=== PATIENT | female | born 1990 | race African-American/Black ===

== ENCOUNTER 2018-10-09 19:03 | Emergency (ER) | payer OTHER ==
[~2018-10-09] VITALS: Ht 157.5 cm; Wt 63.5 kg
--- NOTE | 2018-10-09 19:27 | NUR ---
Patient ambulated with stable gait. Speech clear, speaks in complete sentences. A/Ox4. Patient came for c/o flu-like symptoms: sore throat, fever, fever, and nausea with no vomiting. Patient was seen at an urgent care center yesterday for the same symptoms, was prescribed Tamiflu and an ATB that she does not recall the name of. Respiratory even and unlabored, no acute distress noted no sob. No cardiovascular distress noted, all pulses palpable, skin is warm to the touch. No distress noted. Patient in bed at lowest position, sr upx2, call light within reach, fall precautions implemented per protocol. Relative at bedside accompanying patient.
--- NOTE | 2018-10-09 19:37 | NUR ---
ERMD at bedside for eval
[2018-10-09 20:04] LABS: BASOPHILS % (AUTO) 0.2 % (0.0-2.0); EOSINOPHILS % (AUTO) 0.1 % (0.0-7.0); HEMATOCRIT 36.9 % (31.2-41.9); HEMOGLOBIN 11.8 g/dL (10.9-14.3); LYMPHOCYTES # (AUTO) 1.2 K/uL (20.0-40.0); LYMPHOCYTES % (AUTO) 13.3 % (20.5-51.5); MEAN CORPUSCULAR HEMOGLOBIN 22.2 uug (24.7-32.8); MEAN CORPUSCULAR HGB CONC 32 g/dL (32.3-35.6); MEAN CORPUSCULAR VOLUME 69.7 fL (75.5-95.3); MONOCYTES % (AUTO) 11.5 % (0.0-11.0); NEUTROPHILS # (AUTO) 6.5 K/uL (1.8-8.9); NEUTROPHILS % (AUTO) 74.9 % (38.5-71.5); PLATELET COUNT (AUTO) 272 K/uL (179-408); RED BLOOD CELL COUNT(AUTO) 5.29 MIL/uL (3.63-4.92); WHITE BLOOD COUNT (AUTO) 8.7 K/uL (3.8-11.8)
[2018-10-09 20:07] LABS: *BLOOD, URINE 3+ (NEGATIVE); *COLOR,URINE YELLOW (YELLOW); *KETONES,URINE 4+ (NEGATIVE); *UROBILINOGEN,URINE 0.2 E.U./dl (NORMAL); LEUKOCYTE ESTERASE ,URINE NEGATIVE (NEGATIVE); NITRITE, URINE NEGATIVE (NEGATIVE); UGLUCOSE NEGATIVE (NEGATIVE)
[2018-10-09 20:11] LABS: *BILIRUBIN,URIN 1+ (NEGATIVE)
[2018-10-09] MEDS: IV NORMAL SALINE 1000 ML BAG IV ONE (20:14)
[2018-10-09 20:22] LABS: BACTERIA,URINE MODERATE /HPF (NONE SEEN); SQUAMOUS EPITHELIAL CELL,UR MODERATE /HPF (NONE SEEN)
[2018-10-09 20:23] LABS: *CLARITY,URINE CLOUDY (CLEAR)
[2018-10-09 20:27] LABS: CREATININE 1.1 mg/dL (0.6-1.3); POTASSIUM 3.7 mmol/L (3.5-5.1)
[2018-10-09 20:31] LABS: BILIRUBIN,DIRECT 0.1 mg/dL (0.0-0.2); BILIRUBIN,TOTAL 0.3 mg/dL (0.2-1.0)
[2018-10-09] MEDS ORDERED: IV NORMAL SALINE 250 ML IV ONE (21:02)
[2018-10-09] MEDS ORDERED: SWABABLE VALVE TRANSFER SET EA MC ONE (21:02)
[2018-10-09] MEDS ORDERED: IOHEXOL 350 100 ML INFUS..BTL ONE (21:02)
--- NOTE | 2018-10-09 21:09 | NUR ---
Patient transported to CT in stable condition.
--- NOTE | 2018-10-09 21:32 | NUR ---
Patient back in room from CT.
[2018-10-09] MEDS: METOCLOPRAMIDE HCL 10 MG/2 ML VIAL IV ONE (22:07)
[2018-10-09] MEDS: KETOROLAC TROMETHAMINE 15 MG INJ IVP ONE (22:08)
[2018-10-09] MEDS ORDERED: KETOROLAC TROMETHAMINE 15 MG INJ ONE (22:11)
[2018-10-09] MEDS ORDERED: METOCLOPRAMIDE HCL 10 MG/2 ML VIAL ONE (22:11)
--- NOTE | 2018-10-09 22:33 | NUR ---
Patient discharged to home in stable conditon. Written and verbal after care instructions given. Patient verbalizes understanding of instructions. Patient ambulated with stable gait.
[2018-10-09 22:36] VITALS: BP 112/73
== END 2018-10-09 22:37 | disposition home or self-care (01) ==
LOC: ER 19:05
DX: A93.8 Other specified arthropod-borne viral fevers (principal); Z88.0 Allergy status to penicillin
CPT/HCPCS: 36415; 71045; 71275; 80048; 80076; 81000; 81001; 83605; 84484; 84702; 85025; 85379; 85730; 87040 ×2; 87086; 87400; 93005; 96374; 96375; 99284; J1885; J2765; Q9967; 70030-TC; A4663; J7030; J7050

== ENCOUNTER 2020-04-15 08:45 | Emergency (ER) | payer OTHER ==
[~2020-04-15] VITALS: Ht 157.5 cm; Wt 68.0 kg
[2020-04-15] MEDS ORDERED: KETOROLAC TROMETHAMINE 30 MG INJ IM ONE (09:00)
[2020-04-15] MEDS ORDERED: NAPR-1164 PO (09:08)
[2020-04-15] MEDS ORDERED: KETOROLAC TROMETHAMINE 30 MG INJ ONE (09:08)
[2020-04-15] MEDS ORDERED: CYCL10TA9 PO (09:10)
--- NOTE | 2020-04-15 09:21 | NUR ---
Patient discharged to home in stable condition with steady gait. Written and verbal after care instructions given to patient. Patient verbalize understanding & compliance of instructions. Stressed follow up with your primary doctor or return to ER for worsening s/s.
== END 2020-04-15 09:21 | disposition home or self-care (01) ==
LOC: ER 08:45
DX: M54.5 Low back pain (principal); Z88.0 Allergy status to penicillin
CPT/HCPCS: 96372; 99283; J1885; A4663

== ENCOUNTER 2022-01-12 17:53 | Emergency (ER) | payer OTHER ==
[~2022-01-12] VITALS: Ht 157.5 cm; Wt 68.0 kg
[~2022-01-12 17:53] MED LIST: CYCL10TA9 PO; NAPR-1164 PO
[2022-01-12] MEDS ORDERED: KETOROLAC TROMETHAMINE 30 MG INJ IVP ONE (19:00)
[2022-01-12] MEDS ORDERED: METOCLOPRAMIDE HCL 10 MG/2 ML VIAL IV ONE (19:00)
[2022-01-12] MEDS ORDERED: IV NS 1000 ML 1,000 ML IV ONE (19:00)
[2022-01-12] MEDS ORDERED: diphenhydrAMINE 50 MG/1 ML VIAL IV ONE (19:00)
--- NOTE | 2022-01-12 19:07 | NUR ---
Endorsed to Dick WARREN.
[2022-01-12] MEDS ORDERED: KETOROLAC TROMETHAMINE 30 MG INJ ONE (19:49)
[2022-01-12] MEDS ORDERED: METOCLOPRAMIDE HCL 10 MG/2 ML VIAL ONE (19:49)
[2022-01-12] MEDS ORDERED: diphenhydrAMINE 50 MG/1 ML VIAL ONE (19:49)
[2022-01-12 20:15] LABS: *BILIRUBIN,URIN NEGATIVE (NEGATIVE); *BLOOD, URINE NEGATIVE (NEGATIVE); *CLARITY,URINE CLEAR (CLEAR); *COLOR,URINE YELLOW (YELLOW); *KETONES,URINE NEGATIVE (NEGATIVE); *URINE HCG, QUAL NEG (NEGATIVE); *UROBILINOGEN,URINE 0.2 E.U./dl (NORMAL); LEUKOCYTE ESTERASE ,URINE NEGATIVE (NEGATIVE); NITRITE, URINE NEGATIVE (NEGATIVE); PH,URINE 6.5 (5.0-8.0); UGLUCOSE NEGATIVE (NEGATIVE)
[2022-01-12] MEDS ORDERED: PROC10TA29 PO (21:57)
[2022-01-12] MEDS ORDERED: NAPR-1009 PO (21:57)
[2022-01-12] MEDS ORDERED: SUMA100T16 PO (21:57)
--- NOTE | 2022-01-12 22:02 | NUR ---
IV removed. Catheter intact and site benign. Pressure and 4x4 gauze applied to site. No bleeding noted.
[2022-01-12 22:10] VITALS: BP 122/75
--- NOTE | 2022-01-12 22:10 | NUR ---
Patient discharged to home in stable condition with family taking patient home. Written and verbal after care instructions given. Patient verbalizes understanding of instructions. Stressed follow up or return to ER for worsening s/s.
== END 2022-01-12 22:11 | disposition home or self-care (01) ==
LOC: ER 17:53
DX: G43.909 Migraine, unspecified, not intractable, without status migrainosus (principal); Z88.0 Allergy status to penicillin
CPT/HCPCS: 99284; 96374; 96375; 96361; 81003; 84703; J1200; J1885; J2765; J7040; A4663

== ENCOUNTER → 2022-12-01 | Emergency (ER) | payer OTHER ==
[~2022-12-01] VITALS: Ht 157.5 cm; Wt 68.0 kg
[~2022-12-01] MED LIST changes: +NAPR-1009 PO; +PROC10TA29 PO; +SUMA100T16 PO
[2022-12-01 11:25] VITALS: O2SAT 100
[2022-12-01 11:44] LABS: BASOPHILS # (AUTO) 0.1 K/UL (0.0-0.2); EOSINOPHILS # (AUTO) 0.2 K/uL (0.0-0.7); EOSINOPHILS % (AUTO) 2.6 % (0.0-7.0); HEMATOCRIT 37.2 % (31.2-41.9); HEMOGLOBIN 11.9 g/dL (10.9-14.3); LYMPHOCYTES # (AUTO) 1.5 K/uL (0.8-4.8); LYMPHOCYTES % (AUTO) 21.5 % (20.5-51.5); MEAN CORPUSCULAR HEMOGLOBIN 22.6 uug (24.7-32.8); MEAN CORPUSCULAR HGB CONC 32 g/dL (32.3-35.6); MEAN CORPUSCULAR VOLUME 70.4 fL (75.5-95.3); MONOCYTES # (AUTO) 0.5 K/uL (0.1-1.30); MONOCYTES % (AUTO) 7.4 % (0.0-11.0); NEUTROPHILS # (AUTO) 4.6 K/uL (1.8-8.9); NEUTROPHILS % (AUTO) 67.5 % (38.5-71.5); PLATELET COUNT (AUTO) 400 K/uL (179-408); RED BLOOD CELL COUNT(AUTO) 5.28 MIL/uL (3.63-4.92); RED CELL DISTRIBUTION WIDTH 14.9 % (12.3-17.7); WHITE BLOOD COUNT (AUTO) 6.8 K/uL (3.8-11.8)
[2022-12-01 11:50] LABS: *BILIRUBIN,URIN NEGATIVE (NEGATIVE); *BLOOD, URINE NEGATIVE (NEGATIVE); *CLARITY,URINE CLEAR (CLEAR); *COLOR,URINE YELLOW (YELLOW); *KETONES,URINE NEGATIVE (NEGATIVE); *PROTEIN,URINE NEGATIVE (NEGATIVE); *UROBILINOGEN,URINE 0.2 E.U./dl (NORMAL); LEUKOCYTE ESTERASE ,URINE NEGATIVE (NEGATIVE); NITRITE, URINE NEGATIVE (NEGATIVE); UGLUCOSE NEGATIVE (NEGATIVE)
[2022-12-01 11:54] LABS: *URINE HCG, QUAL POSITIVE (NEGATIVE)
[2022-12-01 12:02] LABS: ALBUMIN 3.4 g/dL (3.4-5.0); BILIRUBIN,DIRECT 0.1 mg/dL (0.0-0.2); BILIRUBIN,TOTAL 0.3 mg/dL (0.2-1.0); CALCIUM 9.3 mg/dL (8.5-10.1); POTASSIUM 3.7 mmol/L (3.5-5.1)
[2022-12-01 12:03] LABS: DIFFERENTIAL COMMENT 1
== END | disposition home or self-care (01) ==
LOC: ER 11:23
DX: R10.32 Left lower quadrant pain (principal); R10.2 Pelvic and perineal pain; Z88.0 Allergy status to penicillin; Z79.899 Other long term (current) drug therapy
CPT/HCPCS: 36415; 76856; 83690; 84703; 85025; A4663

== ENCOUNTER 2024-03-27 14:55 | Emergency (ER) | payer OTHER ==
[~2024-03-27] VITALS: Ht 157.5 cm; Wt 68.0 kg
[2024-03-27] MEDS ORDERED: GUAI5SYR4 PO (17:48)
[2024-03-27] MEDS ORDERED: ONDA4TAB5 PO (17:48)
[2024-03-27 18:02] VITALS: BP 128/81; O2SAT 98
== END 2024-03-27 18:02 | disposition home or self-care (01) ==
LOC: ER 14:55
DX: J98.8 Other specified respiratory disorders (principal); B97.89 Other viral agents as the cause of diseases classified elsewhere; Z20.822 Contact with and (suspected) exposure to COVID-19; Z88.0 Allergy status to penicillin
CPT/HCPCS: A4606; A4663

== ENCOUNTER 2024-08-28 17:26 | Emergency (ER) | payer OTHER ==
[~2024-08-28] VITALS: Ht 157.5 cm; Wt 68.0 kg
[~2024-08-28 17:26] MED LIST changes: +GUAI5SYR4 PO; +ONDA4TAB5 PO
[2024-08-28 18:03] VITALS: O2SAT 99
[2024-08-28] MEDS ORDERED: ONDANSETRON ODT 4 MG TAB.RAPDIS ONE (18:36)
[2024-08-28] MEDS ORDERED: HYDROCODONE/APAP 10-325 MG TABLET ONE (18:36)
[2024-08-28] MEDS: HYDROCODONE/APAP 10-325 MG TABLET PO ONE (18:37)
[2024-08-28] MEDS: ONDANSETRON ODT 4 MG TAB.RAPDIS SL ONE (18:37)
[2024-08-28] MEDS ORDERED: ONDA4TAB11 PO (19:01)
[2024-08-28] MEDS ORDERED: HYDR-3980 PO (19:01)
== END 2024-08-28 19:43 | disposition home or self-care (01) ==
LOC: ER 17:29
DX: G44.209 Tension-type headache, unspecified, not intractable (principal); Z98.890 Other specified postprocedural states; Z79.899 Other long term (current) drug therapy; Z88.0 Allergy status to penicillin
CPT/HCPCS: A4606; A4663; Q0162